=== PATIENT | male | born 1980 | race Caucasian/White ===

== ENCOUNTER 2019-06-27 12:21 | Inpatient (IN) ==
[2019-06-27 13:03] LABS: Basophils % 0.1 %; Eosinophils % 0.4 %; Hemoglobin 16.4 g/dL (12.9-16.9); Immature Granulocytes % 0.3 % (0-4); Lymphocytes # 2.2 K/mcL (0.6-4.6); Lymphocytes % 29.7 %; Mean Corpuscular HGB Conc 34.9 g/dL (31.6-35.5); Mean Corpuscular Hemoglobin 33.3 pg (28.0-33.3); Mean Corpuscular Volume 95.5 fL (83.0-100.0); Mean Platelet Volume 9.5 fL (9.4-12.4); Monocytes # 0.6 K/mcL (0.0-1.3); Monocytes % 7.9 %; Neutrophils # 4.5 K/mcL (1.6-8.9); Platelet Count 250 K/mcL (140-400); Red Blood Count 4.92 M/mcL (4.19-5.50); Red Cell Distribution Width 12.5 % (11.5-14.5); Segmented Neutrophils % 61.6 %; White Blood Count 7.3 K/mcL (4.3-11.1)
[2019-06-27 13:23] LABS: BUN/Creatinine Ratio 12 (6-26); Blood Urea Nitrogen 13 mg/dL (6-20); Calcium 8.7 mg/dL (8.6-10.3); Carbon Dioxide 24 mEq/L (23-29); Chloride 102 mEq/L (98-107); Glucose 176 mg/dL (70-105); Osmolality,Calculated 290 (280-300); Sodium 138 mEq/L (136-145); eGFR For African Americans > 60 (> 60); eGFR For Non-African Americans > 60 (> 60)
[2019-06-27] MEDS ORDERED: Naloxone 0.4 MG/ML INJ IVP PRN (14:03)
[2019-06-27] MEDS: *HR* OxyCODONE/APAP 10/325 TABLET PO PRN ×2 (15:01→19:19)
[2019-06-27] MEDS: *HR* HYDROmorphone (PF) 1 MG/ML SYRINGE IVP PRN (22:30)
[2019-06-28] MEDS: *HR* OxyCODONE/APAP 10/325 TABLET PO PRN ×2 (07:04→17:56)
[2019-06-28 07:18] LABS: Basophils % 0.1 %; Eosinophils % 0.4 %; Hematocrit 45.5 % (37.5-50.1); Hemoglobin 15.1 g/dL (12.9-16.9); Immature Granulocytes % 0.4 % (0-4); Lymphocytes # 1.1 K/mcL (0.6-4.6); Lymphocytes % 13.5 %; Mean Corpuscular HGB Conc 33.2 g/dL (31.6-35.5); Mean Corpuscular Hemoglobin 32.1 pg (28.0-33.3); Mean Corpuscular Volume 96.6 fL (83.0-100.0); Mean Platelet Volume 9.3 fL (9.4-12.4); Monocytes # 0.8 K/mcL (0.0-1.3); Neutrophils # 5.9 K/mcL (1.6-8.9); Platelet Count 245 K/mcL (140-400); Red Blood Count 4.71 M/mcL (4.19-5.50); Red Cell Distribution Width 12.5 % (11.5-14.5); Segmented Neutrophils % 75.6 %; White Blood Count 7.8 K/mcL (4.3-11.1)
[2019-06-28 07:33] LABS: BUN/Creatinine Ratio 15 (6-26); Blood Urea Nitrogen 15 mg/dL (6-20); Calcium 8.9 mg/dL (8.6-10.3); Carbon Dioxide 29 mEq/L (23-29); Chloride 103 mEq/L (98-107); Glucose 109 mg/dL (70-105); Osmolality,Calculated 287 (280-300); Potassium 4.2 mEq/L (3.5-5.1); Sodium 138 mEq/L (136-145); eGFR For African Americans > 60 (> 60); eGFR For Non-African Americans > 60 (> 60)
[2019-06-28] MEDS: *HR* HYDROmorphone (PF) 1 MG/ML SYRINGE IVP PRN (10:43)
[2019-06-28] MEDS ORDERED: Gabapentin 300 MG CAPSULE PO ONE (11:57)
[2019-06-28] MEDS ORDERED: Albuterol 2.5 MG/3 ML NEBULIZER IH ONE ×2 (13:49→19:00)
[2019-06-28] MEDS ORDERED: Clindamycin 900 MG/50 ML 900 MG/50 ML IV.SOLN IVPB ONE ×2 (15:48→19:10)
[2019-06-28] MEDS ORDERED: *HR* OxyCODONE Immed Rel 5 MG TABLET PO PRN (19:28)
[2019-06-28] MEDS ORDERED: Acetaminophen IV 1,000 MG/100 ML INFUS..BTL ONE (19:30)
[2019-06-28] MEDS ORDERED: *HR* Cisatracurium 10 MG/5 ML VIAL IV ONE (19:31)
[2019-06-28] MEDS ORDERED: *HR* Midazolam HCl 2 MG/2 ML VIAL ONE (19:33)
[2019-06-28] MEDS ORDERED: *HR* FentaNYL (PF) 100 MCG/2 ML VIAL ONE (19:33)
[2019-06-28] MEDS ORDERED: Lidocaine -MPF 2% 2 ML VIAL ONE (19:34)
[2019-06-28] MEDS ORDERED: *HR* Propofol 200 MG/20 ML VIAL IVP ONE (19:34)
[2019-06-28] MEDS ORDERED: *HR* Succinylcholine 200 MG/10 ML VIAL IVP ONE (19:34)
[2019-06-28] MEDS ORDERED: Lidocaine HCL 4 ML Topical Solution (Laryng-O-Jet Kit Sterile Pak) TP ONE (19:34)
[2019-06-28] MEDS ORDERED: Dexamethasone 4 MG/ML VIAL ONE (20:53)
[2019-06-28] MEDS ORDERED: Ondansetron 4 MG/2 ML VIAL ONE (20:53)
[2019-06-28] MEDS ORDERED: *HR* HYDROMORPHONE 2 MG/ML VIAL ONE (20:53)
[2019-06-29] MEDS ORDERED: Ringers Solution, Lactated 1,000 ML ONE (00:02)
[2019-06-29] MEDS: *HR* HYDROmorphone (PF) 1 MG/ML SYRINGE IVP PRN ×4 (00:09→14:38)
[2019-06-29] MEDS ORDERED: Naloxone 0.4 MG/ML INJ IVP PRN (00:40)
[2019-06-29] MEDS: Clindamycin 900 MG/50 ML 900 MG/50 ML IV.SOLN IVPB SCH ×3 (01:09→17:25)
[2019-06-29] MEDS: *HR* OxyCODONE/APAP 10/325 TABLET PO PRN ×5 (02:33→23:29)
[2019-06-29 02:56] LABS: Basophils % 0.1 %; Hematocrit 41.1 % (37.5-50.1); Immature Granulocytes % 0.3 % (0-4); Lymphocytes # 0.2 K/mcL (0.6-4.6); Lymphocytes % 2.2 %; Mean Corpuscular HGB Conc 32.8 g/dL (31.6-35.5); Mean Corpuscular Hemoglobin 32.5 pg (28.0-33.3); Mean Platelet Volume 9.5 fL (9.4-12.4); Monocytes # 0.5 K/mcL (0.0-1.3); Monocytes % 5.3 %; Neutrophils # 9.3 K/mcL (1.6-8.9); Platelet Count 215 K/mcL (140-400); Red Blood Count 4.15 M/mcL (4.19-5.50); Red Cell Distribution Width 12.3 % (11.5-14.5); Segmented Neutrophils % 92.1 %; White Blood Count 10.1 K/mcL (4.3-11.1)
[2019-06-29 03:00] LABS: Hemoglobin 13.5 g/dL (12.9-16.9)
[2019-06-29 03:14] LABS: BUN/Creatinine Ratio 15 (6-26); Blood Urea Nitrogen 15 mg/dL (6-20); Calcium 8.4 mg/dL (8.6-10.3); Carbon Dioxide 25 mEq/L (23-29); Chloride 103 mEq/L (98-107); Glucose 164 mg/dL (70-105); Osmolality,Calculated 288 (280-300); Potassium 4.2 mEq/L (3.5-5.1); Sodium 137 mEq/L (136-145); eGFR For African Americans > 60 (> 60); eGFR For Non-African Americans > 60 (> 60)
[2019-06-29] MEDS ORDERED: Menthol 9.1 MG LOZENGE PO PRN (16:10)
[2019-06-29] MEDS: *HR* Enoxaparin 30 MG/0.3 ML SYRINGE SQ SCH (17:26)
[2019-06-30] MEDS: *HR* OxyCODONE/APAP 10/325 TABLET PO PRN ×4 (03:22→17:28)
[2019-06-30 04:44] LABS: Eosinophils % 0.1 %; Immature Granulocytes % 0.1 % (0-4); Lymphocytes # 1.2 K/mcL (0.6-4.6); Lymphocytes % 14.4 %; Mean Corpuscular HGB Conc 33.6 g/dL (31.6-35.5); Mean Corpuscular Hemoglobin 32.7 pg (28.0-33.3); Mean Corpuscular Volume 97.3 fL (83.0-100.0); Mean Platelet Volume 9.6 fL (9.4-12.4); Monocytes # 1.4 K/mcL (0.0-1.3); Monocytes % 15.9 %; Platelet Count 199 K/mcL (140-400); Red Blood Count 3.39 M/mcL (4.19-5.50); Red Cell Distribution Width 12.2 % (11.5-14.5); Segmented Neutrophils % 69.5 %; White Blood Count 8.6 K/mcL (4.3-11.1)
[2019-06-30 04:45] LABS: Hemoglobin 11.1 g/dL (12.9-16.9)
[2019-06-30 04:58] LABS: BUN/Creatinine Ratio 17 (6-26); Blood Urea Nitrogen 13 mg/dL (6-20); Calcium 8.4 mg/dL (8.6-10.3); Carbon Dioxide 27 mEq/L (23-29); Chloride 104 mEq/L (98-107); Glucose 115 mg/dL (70-105); Osmolality,Calculated 285 (280-300); Potassium 3.9 mEq/L (3.5-5.1); Sodium 137 mEq/L (136-145); eGFR For African Americans > 60 (> 60); eGFR For Non-African Americans > 60 (> 60)
[2019-06-30] MEDS: *HR* Enoxaparin 30 MG/0.3 ML SYRINGE SQ SCH (05:23)
[2019-06-30 15:28] VITALS: BP 141/81
== END 2019-06-30 17:50 | disposition home or self-care (01) | DRG 482 ==
LOC: 3NENU 12:21 → EMEROOARM 12:21 → SUATTDRO 13:35 → 3NENU 14:42
PROVIDERS: ADMIT Internal Medicine; ATTEND Internal Medicine